=== PATIENT | male | born 1990 | race Two or more races ===

== ENCOUNTER 2024-08-16 11:04 | Emergency (ER) | payer SELFPAY ==
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
[2024-08-16 11:15] VITALS: BMI 29.9
[2024-08-16 11:19] VITALS: BP 146/97; PULSE 124; RESP 17; TEMP 37.3; O2SAT 97
== END 2024-08-16 11:26 ==
PROVIDERS: Emergency Provider Emergency Medicine
DX: Z02.89 Encounter for other administrative examinations (principal); F10.129 Alcohol abuse with intoxication, unspecified
CPT/HCPCS: 99281

== ENCOUNTER 2024-08-18 01:17 | Emergency (ER) | payer BC, SELFPAY ==
[2024-08-18 01:32] VITALS: BP 168/99; PULSE 118; RESP 18; TEMP 37.2; O2SAT 95
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
== END 2024-08-18 03:32 | disposition home or self-care (01) ==
PROVIDERS: Emergency Provider Emergency Medicine; PCP Family Medicine
DX: S00.81XA Abrasion of other part of head, initial encounter (principal); M25.511 Pain in right shoulder; V89.9XXA Person injured in unspecified vehicle accident, initial encounter
CPT/HCPCS: 70450; 73030; 99284